=== PATIENT | female | born 1955 | race Native Hawaiian/Other Pacific Islander ===

== ENCOUNTER 2016-12-02 08:32 | Outpatient (CLI) | payer BC ==
[~2016-12-02 08:32] MED LIST: SIMV40TA57; TOPAMAX25 MG PO
== END 2016-12-02 19:12 | disposition home or self-care (01) ==
LOC: NM 08:32
DX: R07.89 Other chest pain (principal); E11.9 Type 2 diabetes mellitus without complications; E78.4 Other hyperlipidemia
CPT/HCPCS: 93306; A9500

== ENCOUNTER 2016-12-30 10:38 | Outpatient (CLI) | payer BC ==
[2016-12-30 10:57] LABS: PLATELET COUNT 399 K/uL (152-353)
[2016-12-30 11:10] LABS: POTASSIUM 5.1 mmol/L (3.6-5.2)
== END 2016-12-30 19:13 | disposition home or self-care (01) ==
LOC: LABW 10:38
PROVIDERS: Specialist
DX: Z01.810 Encounter for preprocedural cardiovascular examination (principal); R07.2 Precordial pain; R93.1 Abnormal findings on diagnostic imaging of heart and coronary circulation
CPT/HCPCS: 36415; 80053; 85027

== ENCOUNTER 2016-12-31 13:56 | Outpatient (CLI) | payer BC | END 2016-12-31 19:07 | disposition home or self-care (01) | LOC: LABW 13:56 | DX: D72.828 Other elevated white blood cell count (principal) | CPT/HCPCS: 81000 ==

== ENCOUNTER 2017-01-05 09:40 | Outpatient (CLI) | payer BC ==
[2017-01-05 10:20] LABS: POTASSIUM 4.5 mmol/L (3.6-5.2); SODIUM 135 mmol/L (136-145)
== END 2017-01-05 19:24 | disposition home or self-care (01) ==
LOC: LABW 09:40
PROVIDERS: Nurse Practitioner Adult Health
DX: Z79.899 Other long term (current) drug therapy (principal); R35.8 Other polyuria; Z51.81 Encounter for therapeutic drug level monitoring
CPT/HCPCS: 36415; 80048

== ENCOUNTER 2019-01-11 08:31 | Outpatient (CLI) | payer BC | END 2019-01-11 23:13 | disposition home or self-care (01) | LOC: NM 08:31 | DX: I25.10 Atherosclerotic heart disease of native coronary artery without angina pectoris (principal) | CPT/HCPCS: A9500 ==

== ENCOUNTER 2019-10-06 14:06 | Outpatient (CLI) | payer BC | END 2019-10-06 23:07 | disposition home or self-care (01) | LOC: RAD 14:06 | DX: M25.511 Pain in right shoulder (principal) ==